=== PATIENT | male | born 1950 | race Caucasian/White ===

== ENCOUNTER 2023-11-04 07:57 | Day surgery (SDC) | payer BC, MEDICAID ==
[2023-10-28 12:15] LABS: BASOPHILS % (AUTO) 0.7 % (0-1); EOSINOPHILS # (AUTO) 0.1 X10'3 (0-0.9); LYMPHOCYTES % (AUTO) 31.5 % (21-51); MEAN CORPUSCULAR HEMOGLOBIN 31.2 PG (27.0-31.0); MEAN CORPUSCULAR HGB CONC 33.3 g/dL (33.0-36.5); MEAN CORPUSCULAR VOLUME 93.7 FL (78-98); MEAN PLATELET VOLUME 8.1 FL (7.4-10.4); MONOCYTES # (AUTO) 0.7 X10'3 (0-0.9); MONOCYTES % (AUTO) 11.5 % (2-12); NEUTROPHILS # (AUTO) 3.5 X10'3 (1.8-7.7); NEUTROPHILS % (AUTO) 55.3 % (42-75); PRE OP HEMATOCRIT 41.4 % (42.0-52.0); PRE OP HEMOGLOBIN 13.8 g/dL (14.0-17.9); PRE OP PLATELET COUNT 246 X10'3 (140-440); PRE OP WHITE BLOOD COUNT 6.4 10'3 (4.8-10.8); RED BLOOD COUNT 4.42 X10'6 (4.70-6.10); RED CELL DISTRIBUTION WIDTH 13.8 % (11.5-14.5)
[2023-10-28 12:35] LABS: ALBUMIN 3.5 G/DL (3.4-5.0); ALKALINE PHOSPHATASE 59 IU/L (46-116); BLOOD UREA NITROGEN 16 MG/DL (7-18); BUN/CREATININE RATIO 15.1 (10.0-20.0); CALCIUM 8.4 MG/DL (8.5-10.1); CHLORIDE 106 MMOL/L (99-107); CREATININE 1.06 MG/DL (0.60-1.10); PRE OP ALT 22 U/L (30-65); PRE OP ANION GAP 6 (8-16); PRE OP AST 19 U/L (10-37); PRE OP BILIRUB, TOTAL 2.1 MG/DL (0.0-1.0); PRE OP GLUCOSE 93 MG/DL (70-104); PRE OP POTASSIUM 3.7 MMOL/L (3.4-5.1); PRE OP SODIUM 141 MMOL/L (135-145); TOTAL CARBON DIOXIDE 29.1 MMOL/L (24-32); eGFR 68 ML/MIN
[~2023-11-04] VITALS: Ht 175.3 cm; Wt 74.8 kg
[2023-11-04] VITALS (17 sets, daily range): BP systolic 128–157; BP diastolic 67–84; PULSE 53–78; RESP 11–18; TEMP 97.6; O2SAT 93–99
[2023-11-04] MEDS: famotidine 20mg tablet PO ONE (05:30)
[~2023-11-04 07:57] MED LIST: NO HOME MEDS; ringers solution, lacted 1,000 ML IV SCH
[2023-11-04] MEDS: cefazolin 2gm/D5W 100mL 100 ML IV ONE (08:03)
[2023-11-04] MEDS ORDERED: ondansetron/PF 4mg/2ml inj IV PRN (09:05)
[2023-11-04] MEDS ORDERED: morphine 4 MG/ML inj SYRINge IV PRN (09:05)
[2023-11-04] MEDS ORDERED: enalaprilat dihydrate 2.5mg/2ml vial IV PRN (09:05)
[2023-11-04] MEDS ORDERED: meperidine/PF 25mg/ml syringe IV PRN ×2 (09:05)
[2023-11-04] MEDS ORDERED: morphine 2 MG/ML inj. syringe IV PRN (09:05)
[2023-11-04] MEDS ORDERED: ringers solution, lacted 1,000 ML IV SCH (09:05)
[2023-11-04] MEDS ORDERED: labetalol 20mg/4ml (5mg/ml) syringe IV PRN (09:05)
[2023-11-04] MEDS ORDERED: proCHLORperazine 10 MG/2 ml inj IV PRN (09:05)
[2023-11-04] MEDS ORDERED: LIDOcaine 1% (10mg/ml)w/preservative inj. 20ml MDV ONE (10:01)
[2023-11-04] MEDS ORDERED: sevoflurane 250ml liquid IH ONE (10:04)
[2023-11-04] MEDS ORDERED: fentaNYL/PF 50MCG/1 ML 2ML syringe ONE (10:27)
[2023-11-04] MEDS: BUPIVACAINE liposomal/PF 13.3 MG/ML vial IM ONE ×2 (10:39)
[2023-11-04] MEDS: BUPIVAcaine 2.5mg/ml inj 50ml vial (contains preservative) ONE (10:39)
[2023-11-04] MEDS: BUPIVAcaine/PF 2.5mg/ml (0.25%) 10ml vial ONE (10:40)
[2023-11-04] MEDS: LIDOcaine 1% 30ml preserv. free vial ONE (10:40)
[2023-11-04] MEDS: meperidine/PF 25mg/ml syringe IV PRN (12:56)
[2023-11-04] MEDS: acetaminophen 1,000mg/100ml IV 100 ML IV ONE (13:18)
[2023-11-04] MEDS: oxyCODONE/APAP 5-325mg tablet PO PRN (13:49)
== END 2023-11-04 14:55 | disposition home or self-care (01) ==
LOC: PAS 07:57
PROVIDERS: ATTEND Surgery
DX: K43.0 Incisional hernia with obstruction, without gangrene (principal); I44.4 Left anterior fascicular block; G89.18 Other acute postprocedural pain; Z87.891 Personal history of nicotine dependence; Z79.899 Other long term (current) drug therapy; Z90.49 Acquired absence of other specified parts of digestive tract; Z98.890 Other specified postprocedural states; Z82.49 Family history of ischemic heart disease and other diseases of the circulatory system; Z83.3 Family history of diabetes mellitus; Z80.3 Family history of malignant neoplasm of breast; Z82.61 Family history of arthritis
CPT/HCPCS: 36415; 49616; 64488; 80053; 82948; 85025; 93005; C1781; C9290; J0131; J0690; J1100; J1885; J2175; J2405; J2704; J3010; J3490; J7030; J7120; Z7506; Z7508; Z7512; A4215; A4618